=== PATIENT | female | born 1990 | race Caucasian/White ===

== ENCOUNTER 2016-10-23 08:11 | Emergency (ER) | payer MEDICAID, OTHER ==
[~2016-10-23] VITALS: Ht 160 cm; Wt 67.5 kg
[2016-10-23 08:16] VITALS: Ht 160 cm; Wt 67.5 kg
[2016-10-23 08:35] LABS: URINE BLOOD (Dip) POC Negative (NEGATIVE)
[2016-10-23] MEDS ORDERED: ACETAMINOPHEN 325 MG TAB PO STA (08:43)
[2016-10-23 09:26] LABS: BASOPHILS % 0.3 % (0.0-2.0); EOSINOPHILS # 0.1 10^3/ul (0.0-0.5); EOSINOPHILS % 1.3 % (0.0-7.0); HEMATOCRIT 34.9 % (37.0-47.0); HEMOGLOBIN 11.3 g/dl (12.0-16.0); LYMPHOCYTES # 1.8 10^3/ul (0.8-2.9); LYMPHOCYTES % 30.1 % (15.0-51.0); MEAN CORPUSCULAR HEMOGLOBIN 25.5 pg (29.0-33.0); MEAN CORPUSCULAR HGB CONC 32.4 g/dl (32.0-37.0); MEAN CORPUSCULAR VOLUME 78.6 fl (82.0-101.0); MEAN PLATELET VOLUME 10.6 fl (7.4-10.4); MONOCYTE # 0.4 10^3/ul (0.3-0.9); MONOCYTES % 6.6 % (0.0-11.0); NEUTROPHIL # 3.7 10^3/ul (1.6-7.5); NEUTROPHILS % 61.4 % (39.0-77.0); PLATELET COUNT 381 10^3/UL (140-440); RED BLOOD COUNT 4.44 10^6/ul (4.20-5.40); RED CELL DISTRIBUTION WIDTH 14.9 % (11.5-14.5); WHITE BLOOD COUNT 6.1 10^3/ul (4.8-10.8)
[2016-10-23 09:43] LABS: ADD UMIC YES; URINE BILIRUBIN (Dip) NEGATIVE (NEGATIVE); URINE BLOOD (Dip) NEGATIVE (NEGATIVE); URINE COLOR LT. YELLOW (YELLOW); URINE GLUCOSE (Dip) NEGATIVE (NEGATIVE); URINE KETONES (Dip) NEGATIVE (NEGATIVE); URINE LEUKOCYTE ESTERASE (Dip) 1+ (NEGATIVE); URINE NITRITE (Dip) NEGATIVE (NEGATIVE); URINE TOTAL PROTEIN (Dip) NEGATIVE (NEGATIVE); URINE UROBILINOGEN (Dip) 0.2 E.U./dL (0.1-1.0)
--- NOTE | 2016-10-23 10:07 | RADRPT ---
PROCEDURE: US Obstetrical 1st Trimester CLINICAL INDICATION: Right-sided pelvic pain TECHNIQUE: Multiple real-time images were acquired of the patient's maternal abdomen utilizing a curved array transducer. COMPARISON: None FINDINGS: The uterus is mildly prominent and measures 10.7 cm in sagittal diameter and 5.4 x 6.5 cm in cross d iameter.. The endometrial stripe is thickened to 1.5 cm and AP diameter. There is a tiny cystic structure kerwin suring approximately 2 mm within the thickened endometrium. Small Nabothian cysts are seen within t he cervix. The right ovary is not identified. The left ovary measures 4.0 x 2.5 x 2.3 cm and contains a 1.7 cm corpus lutein or hemorrhagic cyst. No adnexal mass is identified. A small amount of free intraperitoneal fluid is evident with low level internal echoes. IMPRESSION: 1. Mildly prominent uterus with a thickened endometrium measuring 1.5 cm in AP diameter. A 2 mm cys tic structure is seen within this thickened endometrium, possibly representing an early gestation. Correlation with quantitative serial beta HCG would be useful. 2. The right ovary is not identified and a 1.7 cm hemorrhagic or corpus lutein cyst is seen within the left ovary. 3. There is a small amount of free intraperitoneal fluid. Physician Yunior Date Time Electronically viewed and signed by Physician Yunior on 10/23/2016 10:07 /
[2016-10-23 10:14] LABS: SQUAMOUS EPITHELIAL CELL,UR FEW; URINE RBCS NONE SEEN /HPF (0)
[2016-10-23] MEDS ORDERED: NITR-58 PO (11:49)
[2016-10-23] MEDS ORDERED: ACET500C5 PO (11:49)
--- NOTE | 2016-10-23 12:06 | ERD ---
ER Documentation Chief Complaint Date/Time DATE: 10/23/16 TIME: 12:00 Chief Complaint Complains of right lower quadrant abdominal pain Hx of Ovarian cyst HPI 26-year-old female who is a A1 has a history of right ovarian cyst and status post cholecystectomy in 2012 presents to the ED complaining of abdominal cramping that started last night. Reports that the pain radiates to her back. States that it is a bad cramping sensation and rates it a 7 out of 10. Denies any nausea, vomiting, diarrhea. States that she had a normal bowel movement a couple days ago. States that she is sexually active and has one partner. States that her last menses was on September 17, 2016 and did miss her period. ROS All systems reviewed and are negative except as per history of present illness. Medications Home Meds Active Scripts Nitrofurantoin Monohyd Macrocr* (Macrobid*) 100 Mg Capsr, 100 MG PO BID for 7 Days, CAP Prov:EVI GU-Joshua 10/23/16 Acetaminophen* (Tylophen*) 500 Mg Capsule, 1 CAP PO Q6H Y for PAIN AND OR ELEVATED TEMP, #20 CAP Prov:EVI GU PA-C 10/23/16 Allergies Allergies: Coded Allergies: Penicillins (Verified Allergy, Unknown, Rash, 10/23/16) PMhx/Soc History of Surgery: Yes (cholecystectomy) Anesthesia Reaction: No Hx Neurological Disorder: No Hx Respiratory Disorders: No Hx Cardiac Disorders: No Hx Psychiatric Problems: No Hx Miscellaneous Medical Probl: No Hx Alcohol Use: No Hx Substance Use: No Hx Tobacco Use: No Physical Exam Vitals Vital Signs Date Time Temp Pulse Resp B/P Pulse Ox O2 Delivery O2 Flow Rate FiO2 10/23/16 08:16 98.0 72 20 124/84 100 Physical Exam Const: Ugu-kxy-knyhlefqy, well-nourished. In no acute distress. Head: Atraumatic, normocephalic Eyes: Normal Conjunctiva without injection. No purulent discharge. ENT: Normal external ear, nose. Moist oropharynx without tonsillar exudates. Non -erythematous pharynx. Uvula midline. No drooling. No trismus. Neck: No cervical midline tenderness. Full range of motion. No meningismus. No cervical lymphadenopathy. No JVD. Resp: Clear to auscultation bilaterally. No wheezing, rhonchi, rales, or crackles. No accessory muscle use. No retractions. Cardio: Regular rate and rhythm. No murmurs, rubs or gallops. Abd: Soft, right pelvic tenderness, non distended. Normal bowel sounds. No palpable masses. No rebound tenderness. No guarding. Negative McBurney's point. Negative psoas sign. Negative obturator sign. Skin: No petechiae or rashes Back: No midline tenderness. No CVA tenderness. Ext: No cyanosis, or edema. Neur: Awake and alert. Normal gait. Normal coordination. Psych: Normal Mood and Affect Result Diagram: 10/23/16 0855 Results 24 hrs Laboratory Tests Test 10/23/16 08:37 10/23/16 08:55 10/23/16 09:09 Bedside Urine Blood Negative Bedside Urine Glucose (UA) Negative Bedside Urine Ketones (LAB) Negative Bedside Urine Leukocyte Esterase (L 2+ Bedside Urine Nitrite (LAB) Negative Bedside Urine Protein (LAB) Negative Bedside Urine pH (LAB) 5.0 Basophils # 0.010^3/ul Basophils % 0.3% Beta HCG, Quantitative 167.8mIU/ml Eosinophils # 0.110^3/ul Eosinophils % 1.3% Hematocrit 34.9% Hemoglobin 11.3g/dl Lymphocytes # 1.810^3/ul Lymphocytes % 30.1% Mean Corpuscular Hemoglobin 25.5pg Mean Corpuscular Hemoglobin Concent 32.4g/dl Mean Corpuscular Volume 78.6fl Mean Platelet Volume 10.6fl Monocytes # 0.410^3/ul Monocytes % 6.6% Neutrophils # 3.710^3/ul Neutrophils % 61.4% Nucleated Red Blood Cells # 0.010^3/ul Nucleated Red Blood Cells % 0.0/100WBC Platelet Count 92697^3/UL Red Blood Count 4.4410^6/ul Red Cell Distribution Width 14.9% White Blood Count 6.110^3/ul Urine Amorphous Urates FEW Urine Bilirubin NEGATIVE Urine Clarity CLEAR Urine Color LT. YELLOW Urine Glucose NEGATIVE% Urine Hemoglobin NEGATIVE Urine Ketones NEGATIVE Urine Leukocyte Esterase 1+ Urine Microscopic RBC NONE SEEN/HPF Urine Microscopic WBC 0-2/HPF Urine Nitrite NEGATIVE Urine Specific [place] >=1.030 Urine Squamous Epithelial Cells FEW Urine Total Protein NEGATIVE Urine Urobilinogen 0.2 E.U./dL Urine pH 5.0 Current Medications Medications (Trade) Dose Ordered Sig/Mary Route PRN Reason Start Time Stop Time Status Last Admin Dose Admin Acetaminophen (Tylenol Tab) 650 mg ONCE STAT PO 10/23/16 08:43 10/23/16 08:45 DC 10/23/16 08:50 Procedures/MDM 26-year-old female presents the ED complaining of right-sided pelvic tenderness. Patient is afebrile and nontoxic-appearing. Patient has normal vital signs. At this time patient notified me stating that the urine is positive for . An ultrasound, beta-hCG, CBC, type and RH, UA was ordered to evaluate patient. CBC: No evidence of severe infection or anemia Urine: No elevation in nitrites, leukocyte esterase, hematuria. No evidence of UTI Rh: No indication for Rhogam at this time. beta Hcg: PROCEDURE: US Obstetrical 1st Trimester CLINICAL INDICATION: Right-sided pelvic pain TECHNIQUE: Multiple real-time images were acquired of the patient's maternal abdomen utilizing a curved array transducer. COMPARISON: None FINDINGS: The uterus is mildly prominent and measures 10.7 cm in sagittal diameter and 5.4 x 6.5 cm in cross diameter.. The endometrial stripe is thickened to 1.5 cm and AP diameter. There is a tiny cystic structure measuring approximately 2 mm within the thickened endometrium. Small Nabothian cysts are seen within the cervix. The right ovary is not identified. The left ovary measures 4.0 x 2.5 x 2.3 cm and contains a 1.7 cm corpus lutein or hemorrhagic cyst. No adnexal mass is identified. A small amount of free intraperitoneal fluid is evident with low level internal echoes. IMPRESSION: 1. Mildly prominent uterus with a thickened endometrium measuring 1.5 cm in AP diameter. A 2 mm cystic structure is seen within this thickened endometrium, possibly representing an early gestation. Correlation with quantitative serial beta HCG would be useful. 2. The right ovary is not identified and a 1.7 cm hemorrhagic or corpus lutein cyst is seen within the left ovary. 3. There is a small amount of free intraperitoneal fluid. Patient could likely have a possible early gestation with the 2 mm cystic structure seen in the thing and endometrium. Patient's last menses was on September 17, 2016, so it could be too early to detect on ultrasound. Patient's beta hCG is 167.8 which does show patient to be . The right ovary, 1.7 cm could also be the reason for causing patient's right pelvic pain. Low suspicion for symptomatic anemia, ectopic , sepsis, PID, appendicitis, ovarian torsion, tubo-ovarian abscess, surgical abdomen, or other emergent conditions. Discharge medications: Tylenol, Macrobid Patient to follow up with BUSINESS SUPPORT COORDINATOR in 2 days for further evaluation and treatment. Patient is to return sooner to the ED for any worsening symptoms. Patient's questions were answered. Patient understood and agreed with discharge plan. Departure Diagnosis: Primary Impression: Weeks of gestation: unspecified Qualified Code: Z33.1 - , unspecified gestational age Additional Impression: Urinary tract infection Urinary tract infection type: site unspecified Hematuria presence: without hematuria Qualified Code: N39.0 - Urinary tract infection without hematuria, site unspecified Condition: Stable Patient Instructions: Understanding Urinary Tract Infections (UTIs), , New Dx Referrals: [facility] YOU HAVE RECEIVED A MEDICAL SCREENING EXAM AND THE RESULTS INDICATE THAT YOU DO NOT HAVE A CONDITION THAT REQUIRES URGENT TREATMENT IN THE EMERGENCY DEPARTMENT. FURTHER EVALUATION AND TREATMENT OF YOUR CONDITION CAN WAIT UNTIL YOU ARE SEEN IN YOUR DOCTORS OFFICE WITHIN THE NEXT 1-2 DAYS. IT IS YOUR RESPONSIBILITY TO MAKE AN APPOINTMENT FOR FOLOW-UP CARE. IF YOU HAVE A PRIMARY DOCTOR --you should call your primary doctor and schedule an appointment IF YOU DO NOT HAVE A PRIMARY DOCTOR YOU CAN CALL OUR PHYSICIAN REFERRAL HOTLINE AT IF YOU CAN NOT AFFORD TO SEE A PHYSICIAN YOU CAN CHOSE FROM THE FOLLOWING [facility] [address] [facility]. [facility] [address] [facility] [address] [facility] [facility] [address] [facility]. [facility] [address] [facility]. [facility]. [address] [facility]. [facility] YOU HAVE RECEIVED A MEDICAL SCREENING EXAM AND THE RESULTS INDICATE THAT YOU DO NOT HAVE A CONDITION THAT REQUIRES URGENT TREATMENT IN THE EMERGENCY DEPARTMENT. FURTHER EVALUATION AND TREATMENT OF YOUR CONDITION CAN WAIT UNTIL YOU ARE SEEN IN YOUR DOCTORS OFFICE WITHIN THE NEXT 1-2 DAYS. IT IS YOUR RESPONSIBILITY TO MAKE AN APPOINTMENT FOR FOLOW-UP CARE. IF YOU HAVE A PRIMARY DOCTOR --you should call your primary doctor and schedule and appointment IF YOU DO NOT HAVE A PRIMARY DOCTOR YOU CAN CALL OUR PHYSICIAN REFERRAL HOTLINE AT . IF YOU CAN NOT AFFORD TO SEE A PHYSICIAN YOU CAN CHOSE FROM THE FOLLOWING [facility] INSTITUTIONS: [facility] [address] [place] [address] [facility] [address] [place] [address] [facility] [address] [place] [address] BUSINESS SUPPORT COORDINATOR [place] [address] [facility] [address] [place] [address] OFFICE FAX [facility] [address] [place] [address] [address] [facility] [place] [address] [place] [address] [address] AMY, [facility] [address] [facility], [address] [address] [facility] [address] [place] [address] [facility] [address] [place] [address] [phone] [address] [facility] [address] - [place] [place], [facility] [address] [address] [address] [facility] [address], [facility] [address] [address] [facility] [address] [place], [place] [address] [facility] Hours: 8:00 am - 5:00 pm Additional Instructions: FOLLOW UP WITH YOUR PRIMARY CARE PHYSICIAN TOMORROW.Return to this facility if you are not improving as expected. EVI GU PA-C Oct 23, 2016 12:06
== END 2016-10-23 12:01 | disposition home or self-care (01) ==
LOC: FTE 08:11
DX: Z33.1 Pregnant state, incidental (principal); N39.0 Urinary tract infection, site not specified; R10.2 Pelvic and perineal pain
CPT/HCPCS: 76801; 76817; 81001; 81003; 84702; 85025; 86900; 86901; Z7610; 36415